=== PATIENT | male | born 1960 | race Caucasian/White ===

== ENCOUNTER 2017-06-13 14:42 | Emergency (ER) | payer OTHER ==
[~2017-06-13] VITALS: Ht 170.2 cm; Wt 65.0 kg
[2017-06-13 14:47] VITALS: BP 152/89; PULSE 79; RESP 16; TEMP 98.5; O2SAT 98
[2017-06-13] MEDS ORDERED: PROPARACAINE HCL 0.5% OPHT SOLN 15 ML BTL RIGHT EYE ONE (15:15)
[2017-06-13] MEDS ORDERED: LOVA20TA PO (15:20)
[2017-06-13] MEDS ORDERED: LISI-515 PO (15:20)
[2017-06-13] MEDS ORDERED: PLAV75TA29 PO (15:20)
[2017-06-13] MEDS ORDERED: ASPI81TA81 PO (15:20)
[2017-06-13] MEDS ORDERED: ERYTOIN10 RIGHT EYE (15:25)
--- NOTE | 2017-06-13 15:25 | PD ---
HPI Chief Complaint: Eye Problems/Injury Time Seen by Provider: 15:05 Travel History International Travel<30 days: No Contact w/Intl Traveler<30days: No Traveled to known affect area: No History of Present Illness HPI The patient is a 56-year-old male who presents to the emergency department for right eye pain. The patient was working with metal on Friday , felt a small piece of metal hit him in the face, thought he was okay. However , he awakened and had some right eye pain and irritation. He has been rubbing his right eye and now notes swelling of the right upper eyelid. He does complain of a foreign body sensation to the right eye. He cannot recall his last tetanus shot. He does complain of mild excessive tearing secondary to the discomfort and foreign body sensation but denies any acute visual changes. He does not wear contacts. Symptoms are moderate, exacerbated after metal struck the face while working on metal on Friday, and there are no current alleviating factors. PFSH Past Medical History High Cholesterol: Yes Hypertension: Yes Medical other: Yes (PAD left leg) Tetanus Vaccination: > 5 Years Influenza Vaccination: No Past Surgical History Surgical History: No Previous Surgery Social History Alcohol Use: Yes (occa. beer) Tobacco Use: Yes (1 ppd) Substance Use: No Allergies-Medications (Allergen,Severity, Reaction): Coded Allergies: No Known Allergies (Verified Allergy, Unknown, 06/13/17) Reported Meds & Prescriptions Reported Meds & Active Scripts Active Reported Lovastatin 20 Mg Tab 20 Mg PO DAILY Lisinopril 20 Mg Tab 20 Mg PO DAILY Plavix (Clopidogrel Bisulfate) 75 Mg Tab 75 Mg PO DAILY Aspir-81 (Aspirin) 81 Mg Tabdr 1 Tab PO DAILY Review of Systems Except as stated in HPI: all other systems reviewed are Neg Eyes: Positive: Redness, Foreign Body Sensation, Pain, Tearing, No: Blurred Vision HENT: No: Headaches Gastrointestinal: No: Nausea, Vomiting Skin: No Rash Physical Exam Narrative GENERAL: Awake, alert, pleasant 36-year-old male who appears his stated age and is in no acute respiratory distress. SKIN: Focused skin assessment warm/dry. HEAD: Atraumatic. Normocephalic. EYES: Pupils equal and round. Pupils are 4 mm bilateral and reactive. EOMs are intact. Patient is able to see fingers at a distance of 2 feet without difficulty. Mild injection of the right eye. Visible foreign body just to the medial aspect of the iris at the 3 o'clock position. It appears to be metal with rust ring. ENT: No nasal bleeding or discharge. Mucous membranes pink and moist. NECK: Trachea midline. No JVD. MUSCULOSKELETAL: No obvious deformities. No clubbing. No cyanosis. No edema. NEUROLOGICAL: Awake and alert. No obvious cranial nerve deficits. Motor grossly within normal limits. Normal speech. PSYCHIATRIC: Appropriate mood and affect; insight and judgment normal. Data Data Last Documented VS Vital Signs Date Time Temp Pulse Resp B/P (MAP) Pulse Ox O2 Delivery O2 Flow Rate FiO2 06/13/17 15:12 16 06/13/17 14:47 98.5 79 152/89 (110) 98 Orders Orders Proparacaine 0.5% Opth Soln (Alcaine 0.5 (06/13/17 15:15) MDM Medical Decision Making Medical Screen Exam Complete: Yes Emergency Medical Condition: Yes Medical Record Reviewed: Yes Differential Diagnosis differential diagnosis includes foreign body, rust ring, globe injury, corneal abrasion, corneal ulcer. Narrative Course One drop of proparacaine was applied to the right eye. The eye was examined using fluorostain, there was take up of the stain at the 3 o'clock position. I used a 20-gauge needle and upright of small amount of the foreign body, however , cannot remove the total foreign body. I discussed the patient with the on- call dialysis patient care technician, Dr. Woods, who will see the patient Friday in the office. The patient will be placed erythromycin ointment over the . He is advised to avoid rubbing the eye. Diagnosis Primary Impression: Foreign body of right eye Qualified Codes: T15.91XA - Foreign body on external eye, part unspecified, right eye, initial encounter Referrals: Bernice Woods MD call for appointment Call for appointment to be seen Friday. Additional Instructions: Eye ointment as directed. Tylenol and/or Motrin as needed for pain. Follow-up with dialysis patient care technician Friday. Med/Other Pt SpecificInfo: Prescription(s) given Scripts Erythromycin Opth Oint (Erythromycin Opth Oint) 5 Mg/Gm Oint 1 APPLIC RIGHT EYE QID for Infection for 5 Days, #1 TUBE 0 Refills Prov: Jeevan Long MD 06/13/17 Disposition: 01 DISCHARGE HOME Condition: Stable Jeevan Long MD Jun 13, 2017 15:25
[2017-06-13] MEDS ORDERED: TETANUS/DIPHTHERIA TOXOID ADULT 0.5 ML VIAL IM ONE (15:30)
== END 2017-06-13 15:44 | disposition home or self-care (01) ==
LOC: PHED 14:42
DX: T15.91XA Foreign body on external eye, part unspecified, right eye, initial encounter (principal); X58.XXXA Exposure to other specified factors, initial encounter; F17.200 Nicotine dependence, unspecified, uncomplicated
CPT/HCPCS: 90471; 90714

== ENCOUNTER 2017-12-02 06:04 | Day surgery (SDC) | payer OTHER ==
[2017-12-02] MEDS ORDERED: INSULIN HUMAN REGULAR 1,000 UNITS/10 ML VIAL SQ (06:30)
[2017-12-02] MEDS ORDERED: SODIUM CHLORID 0.9% 500 ML IV (06:30)
[2017-12-02] MEDS ORDERED: METOPROLOL TARTRATE 25 MG TAB PO (06:30)
[2017-12-02] MEDS: LACTATED RINGER'S 1000 ML IV (07:06)
[2017-12-02] MEDS: POVIDONE IODINE 5% (ANTISEPSIS KIT) 4 APPLICATIONS EACH NARE ×2 (07:06→08:47)
[2017-12-02] MEDS: CHLORHEXIDINE GLUCONATE 2 % 1 PACK (2 CLOTHS) TOPICAL (07:07)
[2017-12-02 07:10] LABS: BASOPHIL # 0.1 TH/MM3 (0-0.2); BASOPHIL % 0.6 % (0.0-2.0); EOSINOPHIL # 0.1 TH/MM3 (0-0.4); EOSINOPHIL % 0.7 % (0.0-4.0); HEMATOCRIT 48.6 % (39.0-51.0); HEMO FLAGS DIFF FINAL; HEMOGLOBIN 16.9 GM/DL (13.0-17.0); LYMPH % 17.9 % (9.0-44.0); LYMPHOCYTE # 1.7 TH/MM3 (1.0-4.8); MEAN CELL VOLUME 98.3 FL (80.0-100.0); MEAN CORPUSCULAR HEMOGLOBIN 34.2 PG (27.0-34.0); MEAN CORPUSCULAR HGB CONC 34.8 % (32.0-36.0); MEAN PLATELET VOLUME 8.6 FL (7.0-11.0); MONO % 6.9 % (0.0-8.0); MONOCYTE # 0.7 TH/MM3 (0-0.9); NEUT % 73.9 % (16.0-70.0); PLATELET COUNT 287 TH/MM3 (150-450); RED BLOOD COUNT 4.94 MIL/MM3 (4.50-5.90); RED CELL DISTRIBUTION WIDTH 14.2 % (11.6-17.2); WHITE BLOOD COUNT 9.5 TH/MM3 (4.0-11.0)
[2017-12-02 07:15] LABS: APTT (PATIENT) 28.5 SEC (24.3-30.1)
[2017-12-02] MEDS ORDERED: PROTAMINE SULFATE 50 MG/5 ML VIAL (07:24)
[2017-12-02 07:25] LABS: ANION GAP 8 MEQ/L (5-15); BICARBONATE 26.4 MEQ/L (21.0-32.0); BLOOD UREA NITROGEN 6 MG/DL (7-18); CALCIUM 8.9 MG/DL (8.5-10.1); CHLORIDE 108 MEQ/L (98-107); CREATININE 0.82 MG/DL (0.60-1.30); GLOMERULAR FILTRATION RATE 97 ML/MIN (>89); GLUCOSE,RANDOM 105 MG/DL (74-106); POTASSIUM 3.5 MEQ/L (3.5-5.1); SODIUM (NA) 142 MEQ/L (136-145)
[2017-12-02] MEDS ORDERED: HEPARIN SODIUM - IV 10,000 UNITS/10 ML VIAL (07:25)
[2017-12-02] MEDS ORDERED: ceFAZolin INJ 1,000 MG VIAL (07:26)
[2017-12-02] MEDS ORDERED: HEPARIN-NS/PF INJ 0 ML (07:32)
[2017-12-02] MEDS ORDERED: FAMOTIDINE 20 MG/2 ML VIAL (07:36)
[2017-12-02] MEDS ORDERED: MIDAZOLAM HCL 2 MG/2 ML VIAL ×2 (07:36→11:27)
[2017-12-02] MEDS: ceFAZolin 1,000 MG/NS 100 ML IV (08:42)
[2017-12-02] MEDS: HEPARIN SODIUM - SQ 10,000 UNITS/ML VIAL (08:54)
[2017-12-02] MEDS: BUPIVACAINE/EPINEPHRINE 0.5% PF 30 ML VIAL (10:40)
[2017-12-02] MEDS: IOHEXOL 350 MG/ML 100 ML BTL (for RAD DIAG) IVCONTRAST (11:13)
[2017-12-02] MEDS: *morphine SULFATE 4 MG/ML PERIprocedure ONLY (11:44)
[2017-12-02] MEDS ORDERED: ONDANSETRON HCL 4 MG/2 ML VIAL IV (12:00)
[2017-12-02] MEDS ORDERED: NEOSTIGMINE 5 MG/5 ML SYRINGE IV PUSH (12:00)
[2017-12-02] MEDS ORDERED: SODIUM CHLORID 0.9% 500 ML INJ 1,000 ML IV (12:00)
[2017-12-02] MEDS ORDERED: NORMOSOL R INJ 1,000 ML IV (12:00)
[2017-12-02] MEDS ORDERED: PROPOFOL 200 MG/20 ML AMP IV (12:00)
[2017-12-02] MEDS ORDERED: ROCURONIUM INJ 50 MG/5 ML SYRINGE IV PUSH (12:00)
[2017-12-02] MEDS ORDERED: PHENYLEPH/NS 1000 MCG/10 ML SYR IV (12:00)
[2017-12-02] MEDS ORDERED: LABETALOL HCL 100 MG/20 ML VIAL IV (12:00)
[2017-12-02] MEDS ORDERED: LIDOCAINE HCL 1% PF 5 ML SYRINGE OTHER (12:00)
[2017-12-02] MEDS ORDERED: ePHEDrine/NS 25 MG/5 ML SYRINGE IV (12:00)
[2017-12-02] MEDS ORDERED: DEXAMETHASONE SOD PHOS 4 MG/ML VIAL IV (12:00)
[2017-12-02] MEDS ORDERED: GLYCOPYRROLATE 1 MG/5 ML SYRINGE IV PUSH (12:00)
[2017-12-02] MEDS ORDERED: SODIUM CHLORIDE 0.9% FLUSH 10 ML FLUSH IV FLUSH ×2 (13:00→21:00)
[2017-12-02] MEDS ORDERED: DO NOT ADM ANY ANTICOAGULANT DRUGS (13:00)
[2017-12-02] MEDS: CLOPIDOGREL 75 MG TAB PO (13:12)
[2017-12-02] MEDS: ASPIRIN EC 81 MG TABEC (13:12)
[2017-12-02] MEDS ORDERED: POTASSIUM CHLOR 20 MEQ/100 ML x 1 BAG IV (13:15)
[2017-12-02] MEDS ORDERED: MAGNESIUM SULFATE 1 GM/100 ML IV (13:15)
[2017-12-02] MEDS ORDERED: POTASSIUM PHOSPHATE 21 MMOL/NS 250 ML IV (13:15)
[2017-12-02] MEDS ORDERED: POTASSIUM CHLOR 20 MEQ 100 ML x 2 BAGS IV (13:15)
[2017-12-02] MEDS ORDERED: ACETAMINOPHEN 325 MG TAB PO (13:15)
[2017-12-02] MEDS ORDERED: MORPHINE SULFATE 4 MG/ML INJ IV PUSH (13:15)
[2017-12-02] MEDS ORDERED: ONDANSETRON HCL 4 MG/2 ML VIAL IV PUSH (13:15)
[2017-12-03] MEDS ORDERED: PRAVASTATIN SOD 20 MG TAB PO (09:00)
[2017-12-03] MEDS ORDERED: CLOPIDOGREL 75 MG TAB PO (09:00)
[2017-12-03] MEDS ORDERED: ASPIRIN EC 81 MG TABEC PO (09:00)
[2017-12-03] MEDS ORDERED: LISINOPRIL 20 MG TAB PO (09:00)
== END 2017-12-02 17:00 | disposition home or self-care (01) ==
LOC: HCVO 06:04 → HCPC 13:41 → HCVO 17:00
DX: I74.3 Embolism and thrombosis of arteries of the lower extremities (principal); I74.5 Embolism and thrombosis of iliac artery; Z53.39 Other specified procedure converted to open procedure; Z01.818 Encounter for other preprocedural examination
CPT/HCPCS: 35661; 75630; 76937; 80048; 85025; 85610; 85730; 86850; 86900; 86901; 93005